=== PATIENT | female | born 1955 | race Caucasian/White ===

== ENCOUNTER → 2018-03-18 14:52 | Outpatient (CLI) | payer OTHER, SELFPAY ==
--- NOTE | 2018-03-18 14:53 | DI.RAD.S_ITS ---
PROCEDURE: XR TOE RT MIN 2V INDICATIONS: Right great toe pain TECHNIQUE: One view of right foot and 2 views of the right great toe toe(s) acquired. COMPARISON: None. FINDINGS: Bones: There is moderate hallux valgus and moderate osteoarthritic changes involving first MTP joint and first interphalangeal joint. Mild osteoarthritic changes are noted throughout the second through fifth PIP and DIP joints. There is vertically oriented linear lucency involving distal shaft of the first proximal phalanx concerning for a subtle nondisplaced fracture in this area with possible fracture line extending into first interphalangeal joint space. No other fracture or dislocation is seen. No suspicious bony lesions. Soft tissues: No suspicious soft tissue densities. Mild soft tissue swelling around first metatarsal head is seen. IMPRESSION: 1. Linear lucency seen in distal shaft of first proximal phalanx is concerning for incomplete intra-articular fracture in this area. Clinical correlation and followup is recommended. 2. No other fracture or dislocation is seen. Right great toe osteoarthritis and mild soft tissue swelling over first MTP joint. Dictated by: Ramon Jordan M.D. on 03/18/2018 at 15:16 Approved by: Ramon Jordan M.D. on 03/18/2018 at 15:24
== END ==
PROVIDERS: PCP Family Medicine; Visit Provider Registered Nurse
DX: M79.674 Pain in right toe(s) (principal); M19.071 Primary osteoarthritis, right ankle and foot; M79.89 Other specified soft tissue disorders
CPT/HCPCS: 73660

== ENCOUNTER → 2018-04-15 09:37 | Outpatient (CLI) | payer OTHER, SELFPAY ==
--- NOTE | 2018-04-15 09:40 | DI.RAD.S_ITS ---
PROCEDURE: XR FOOT RT MIN 3V INDICATIONS: Follow-up from Xray one month ago TECHNIQUE: 3 views of the foot were acquired. COMPARISON: [facility], CR, XR TOE RT MIN 2V, 03/18/2018, 14:32. FINDINGS: Bones: No fractures or dislocations. No suspicious bony lesions. Moderate hallux valgus deformity is present. Osteoarthritic changes are noted at the first MTP and IP joints. Scattered second through fifth PIP and DIP joint space degenerative narrowing is noted. The previously identified vertical lucency within the first proximal phalanx is not well-visualized. Soft tissues: No tibiotalar joint effusion. Achilles tendon appears normal. IMPRESSION: Nonvisualization of previous first phalanx lucency. Dictated by: Dorothy Khan M.D. on 04/15/2018 at 11:21 Approved by: Dorothy Khan M.D. on 04/15/2018 at 11:24
== END ==
PROVIDERS: PCP Family Medicine; Visit Provider Registered Nurse
DX: S92.401A Displaced unspecified fracture of right great toe, initial encounter for closed fracture (principal)
CPT/HCPCS: 73630

== ENCOUNTER → 2018-09-24 08:55 | Outpatient (CLI) | payer OTHER, SELFPAY ==
--- NOTE | 2018-09-24 08:56 | DI.MG.S_ITS ---
BILATERAL DIGITAL SCREENING MAMMOGRAM 3D/2D WITH CAD: 09/24/2018 CLINICAL: Routine screening. Family history of breast cancer. Comparison is made to exams dated: 04/02/2016 mammogram and 10/16/2013 mammogram - [facility]. The tissue of both breasts is heterogeneously dense. This may lower the sensitivity of mammography. Current study was also evaluated with a Computer Aided Detection (CAD) system. No significant masses, calcifications, or other findings are seen in either breast. There has been no significant interval change. IMPRESSION: NEGATIVE There is no mammographic evidence of malignancy. A 1 year screening mammogram is recommended. This exam was interpreted at Station ID: [id number]. NOTE: For mammograms, a report in lay terms will be sent to the patient. Approximately 15% of breast malignancies will not be visualized mammographically. In the management of a palpable breast mass, a negative mammogram must not discourage biopsy of a clinically suspicious lesion. Electronically Signed By: Lila walters/theresa:09/24/2018 18:45:55 letter sent: Normal Exam ACR BI-RADS Category 1: Negative 3341F
== END ==
PROVIDERS: PCP Family Medicine; Visit Provider Family Medicine
DX: Z12.31 Encounter for screening mammogram for malignant neoplasm of breast (principal); Z80.3 Family history of malignant neoplasm of breast
CPT/HCPCS: 77063; 77067

== ENCOUNTER → 2018-10-03 09:11 | Outpatient (CLI) | payer OTHER, SELFPAY ==
--- NOTE | 2018-10-03 09:12 | DI.US.S_ITS ---
PROCEDURE: US RENAL COMPLETE INDICATIONS: complex renal cyst TECHNIQUE: Real-time scanning was performed of the kidneys and bladder, with image documentation. COMPARISON: [facility], CT, CT ANGIO CHEST PE, 03/07/2016, 14:54. [facility], CT, CT ABD PELVIS W CON, 03/07/2016, 14:54. Outside Facility, RG, US RENAL, 02/01/2016, 9:20. FINDINGS: Kidneys: Kidneys are normal in size. Right kidney measures 10.4 cm long; left kidney measures 10.7 cm long. Right renal cortical thickness is 0.9 cm; left renal cortical thickness is 1.4 cm. Renal cortical echotexture is normal. No hydronephrosis or nephrolithiasis. No suspicious solid mass lesions. Mildly complex right renal cyst no significant change measuring 1.8 x 2.0 x 2.3 cm compared to 1.7 x 2.0 x 2.2 cm and are renal ultrasound. Mildly complex left renal cyst slightly increased in size now measuring 2.5 x 2.1 x 2.1 cm compared to 1.9 x 1.8 x 1.9 cm on prior renal ultrasound. Bladder: Pre-void bladder volume is 40 mL. Post-void residual is 0 mL. Pre-void images demonstrate no intraluminal masses or stones. On pre-void images, bilateral ureteral jets are noted with color Doppler interrogation. (Of note, ureteral jets may not be detectable in up to 25% of cases due to insufficient differences in specific gravity between ureteral and bladder urine). Miscellaneous: No free pelvic fluid. Hepatic cyst measuring 23 mm. IMPRESSION: 1. Mildly complex (Bosniak 2F) bilateral renal cysts, with the left slightly increased in size from prior renal ultrasound performed in 2015. Recommend continued sonographic surveillance and if indicated, renal protocol CT could be performed for further characterization. Dictated by: Lenny BACON Interpreted: Eric Andujar MD on 10/03/2018 at 12:16 Approved by: Eric Andujar M.D. on 10/03/2018 at 16:07
== END ==
PROVIDERS: PCP Family Medicine; Visit Provider Family Medicine
DX: N28.1 Cyst of kidney, acquired (principal)
CPT/HCPCS: 76770

== ENCOUNTER → 2021-05-08 09:41 | Outpatient (CLI) | payer OTHER, SELFPAY ==
[2021-05-08 13:32] LABS: Add Manual Diff / Slide Review NO; Basophils Absolute Auto 0 /uL (0-100); Basophils Percent Auto 0.8 % (0-2); Eosinophils Absolute Auto 400 /uL (0-450); Eosinophils Percent Auto 7.6 % (2-4); Hematocrit 40.8 % (36-46); Hemoglobin 13.4 g/dL (12.0-16.0); Lymphocytes Absolute Auto 1700 /uL (1100-4500); Lymphocytes Percent Auto 34.3 % (25-40); Mean Corpuscular HGB Conc 32.8 % (30-36); Mean Corpuscular Hemoglobin 30.2 PG (26-34); Mean Corpuscular Volume 92.1 fL (80-100); Monocytes Absolute Auto 500 /uL (0-900); Monocytes Percent Auto 9.4 % (3-14); Neutrophils Absolute Auto 2300 /uL (1500-7000); Neutrophils Percent Auto 47.9 % (50-75); Platelet Count 168 X10^3/uL (150-400); Red Blood Cell Count 4.43 X10^6/uL (4.0-5.2); Red Cell Distribution Width 13.4 % (11.6-14.8); White Blood Cell Count 4.9 X10^3/uL (4.5-11.0)
[2021-05-08 14:47] LABS: Alanine Aminotransferase 15 IU/L (<35); Albumin 3.9 g/dL (3.5-5.0); Albumin Globulin Ratio 1.4 (1.0-2.8); Alkaline Phosphatase 62 U/L (38-126); Aspartate Aminotransferase 23 IU/L (14-36); BUN Creatinine Ratio 18.4 (6-22); Bilirubin Total 0.5 mg/dL (0.2-1.3); Blood Urea Nitrogen 14 mg/dL (7-17); Calcium 9.3 mg/dL (8.4-10.2); Carbon Dioxide 33 mmol/L (22-32); Chloride 104 mmol/L (98-107); Cholesterol 222 mg/dL (140-199); Estimated Glomerular Filt Rate > 60.0 mL/min (>60); Globulin 2.7 g/dL (1.7-4.1); Glucose 82 mg/dL (80-110); HDL Cholesterol 83 mg/dL (40-60); HEMOLYSIS < 15 (0-50); LDL Cholesterol Calculated 127 mg/dL (<100); Potassium 4.4 mmol/L (3.4-5.1); Sodium 140 mmol/L (137-145); Total Protein 6.6 g/dL (6.3-8.2); Triglycerides 58 mg/dL (35-150)
[2021-05-08 15:08] LABS: TSH w/ Reflex to FT4 1.14 uIU/mL (0.47-4.68)
[2021-05-08 17:05] LABS: Vitamin D 25 Hydroxy (D3) 63.5 ng/mL (30.0-100.0)
== END ==
PROVIDERS: PCP Family Medicine; Referring Provider Family Medicine; Visit Provider Family Medicine
DX: E78.5 Hyperlipidemia, unspecified (principal); Z00.00 Encounter for general adult medical examination without abnormal findings
CPT/HCPCS: 36415; 80053; 80061; 82306; 84443; 85025

== ENCOUNTER → 2023-04-04 09:08 | Outpatient (CLI) | payer MEDICARE, OTHER, SELFPAY ==
[2023-04-04 11:09] LABS: Add Manual Diff / Slide Review NO; Basophils Absolute Auto 0 /uL (0-100); Basophils Percent Auto 0.7 % (0-2); Eosinophils Absolute Auto 200 /uL (0-450); Eosinophils Percent Auto 5.1 % (2-4); Hematocrit 39.2 % (36-46); Lymphocytes Absolute Auto 1600 /uL (1100-4500); Lymphocytes Percent Auto 34.2 % (25-40); Mean Corpuscular HGB Conc 33.2 % (30-36); Mean Corpuscular Hemoglobin 30.3 PG (26-34); Mean Corpuscular Volume 91.2 fL (80-100); Monocytes Absolute Auto 400 /uL (0-900); Monocytes Percent Auto 9.5 % (3-14); Neutrophils Absolute Auto 2400 /uL (1500-7000); Neutrophils Percent Auto 50.5 % (50-75); Platelet Count 166 X10^3/uL (150-400); Red Blood Cell Count 4.29 X10^6/uL (4.0-5.2); White Blood Cell Count 4.7 X10^3/uL (4.5-11.0)
[2023-04-04 11:32] LABS: Alanine Aminotransferase 20 IU/L (<35); Albumin Globulin Ratio 1.3 (1.0-2.8); Alkaline Phosphatase 51 U/L (38-126); Aspartate Aminotransferase 25 IU/L (14-36); BUN Creatinine Ratio 25.7 (6-22); Bilirubin Total 0.6 mg/dL (0.2-1.3); Blood Urea Nitrogen 19 mg/dL (7-17); Calcium 9.2 mg/dL (8.4-10.2); Carbon Dioxide 28 mmol/L (22-32); Chloride 104 mmol/L (98-107); Cholesterol 256 mg/dL (140-199); Estimated Glomerular Filt Rate > 60 mL/min (>60); Glucose 90 mg/dL (80-110); HDL Cholesterol 81 mg/dL (40-60); HEMOLYSIS < 15 (0-50); LDL Cholesterol Calculated 159 mg/dL (<100); Potassium 4.1 mmol/L (3.4-5.1); Sodium 137 mmol/L (137-145); Triglycerides 82 mg/dL (35-150)
[2023-04-04 11:50] LABS: Vitamin D 25 Hydroxy (D3) 44.7 ng/mL (30.0-100.0)
[2023-04-04 12:13] LABS: TSH w/ Reflex to FT4 0.74 uIU/mL (0.47-4.68)
[2023-04-06 00:04] LABS: Cancer (Carbohydrate) Ag 19-9 8 U/mL (0-35)
== END ==
PROVIDERS: PCP Family Medicine; Referring Provider Family Medicine; Visit Provider Family Medicine
DX: Z13.220 Encounter for screening for lipoid disorders (principal)
CPT/HCPCS: 80053; 80061; 82306; 84443; 85025; 86301

== ENCOUNTER → 2023-05-28 09:17 | Outpatient (CLI) | payer MEDICARE, OTHER, SELFPAY ==
--- NOTE | 2023-05-28 09:19 | DI.MG.S_ITS ---
BILATERAL DIGITAL SCREENING MAMMOGRAM 3D/2D WITH CAD: 05/28/2023 CLINICAL: Routine screening. Family history of breast cancer. Comparison is made to exams dated: 09/24/2018 mammogram - [facility], 04/02/2016 mammogram, and 10/16/2013 mammogram - [facility]. Both breasts are heterogeneously dense, which may obscure small masses (category c / 51-75% glandular tissue). Current study was also evaluated with a Computer Aided Detection (CAD) system. No significant masses, calcifications, or other findings are seen in either breast. There has been no significant interval change. IMPRESSION: NEGATIVE There is no mammographic evidence of malignancy. A 1 year screening mammogram is recommended. Based on the Tyrer Cuzick model (a risk assessment model) the patient's lifetime risk is 16.8% and her 10 year risk is 8.3%. According to the ACR, ACS, and NCCN guidelines, an annual breast MRI exam along with mammogram is recommended if the patient's lifetime risk is 20% or greater. This exam was interpreted at Station ID: [id number]. NOTE: For mammograms, a report in lay terms will be sent to the patient. Approximately 15% of breast malignancies will not be visualized mammographically. In the management of a palpable breast mass, a negative mammogram must not discourage biopsy of a clinically suspicious lesion. Electronically Signed By: Dorian john/theresa:05/28/2023 12:47:48 letter sent: Normal Exam ACR BI-RADS Category 1: Negative 3341F
--- NOTE | 2023-05-28 09:19 | DI.RAD.S_ITS ---
Bone Density Report Name: CASH ROLDAN Age: 67 Sex: Female Ethnicity: White Date of : 1955 Indication: postmenopausal; screening for osteoporosis; Referring Provider: ARPITA RENAE Study: Bone densitometry was performed. Exam Date: May 28, 2023 Accession number: [id number] Bone Density: Region BMD T-score Z-score Classification AP Spine(L1-L4) 0.713 -3.0 -1.2 Osteoporosis Femoral Neck (Left) 0.642 -1.9 -0.3 Osteopenia Total Hip (Left) 0.775 -1.4 -0.1 Osteopenia Femoral Neck (Right) 0.642 -1.9 -0.3 Osteopenia Total Hip (Right) 0.751 -1.6 -0.3 Osteopenia Total Hip Mean 0.763 -1.5 -0.2 Osteopenia World Health Organization criteria for BMD impression classify patients as: Normal (T-score at or above -1.0), Osteopenia (T-score between -1.0 and -2.5), or Osteoporosis (T-score at or below -2.5). 10-year Fracture Risk: FRAX not reported because: Some T-score for Spine Total or Hip Total or Femoral Neck at or below -2.5 Impression: The patient has osteoporosis, based on the Total Spine T-score. Discussion: INCREASED RISK OF FRACTURE. BONE DENSITY IS UNDESIRABLY LOW AT ONE OR MORE SKELETAL SITES, CONSISTENT WITH POSTMENOPAUSAL OSTEOPOROSIS. This patient's lowest T-score meets the World Health Organization's (WHO) criteria for osteoporosis at one or more sites (T-score -2.5 or below). In untreated patients, the risk of osteoporotic fracture increases approximately two-fold for each 1.0 SD decrease in T-score. Low bone density is not the only risk factor for fracture; also consider factors such as patient's age, frailty or poor health, risk of falling, risk of injury, previous osteoporotic fracture, family history of osteoporosis, cigarette smoking, low body weight, etc. Not everyone with low bone mineral density has osteoporosis; osteomalacia and other metabolic bone disorders should also be considered. Patients who have osteoporosis should be evaluated for specific diseases and conditions (secondary causes) that may cause or contribute to bone loss. The [place] [employer]ocr[employer] (AACE) and National Osteoporosis Foundation (NOF) recommend pharmacologic intervention for all postmenopausal women whose T-score is in this range. The patient should follow a healthful lifestyle (good nutrition with adequate calcium and vitamin D, and appropriate weight-bearing exercise). Follow-Up: Consider a repeat BMD and Vertebral Fracture Assessment (VFA) exam in 2 years or sooner if medically necessary, to reassess this patient's status. Reported by: HERMILO AVINA M.D. on 05/28/2023 10:02:00 AM.
== END ==
PROVIDERS: PCP Family Medicine; Referring Provider Family Medicine; Visit Provider Family Medicine
DX: Z12.31 Encounter for screening mammogram for malignant neoplasm of breast (principal); Z80.3 Family history of malignant neoplasm of breast; Z13.220 Encounter for screening for lipoid disorders; M81.0 Age-related osteoporosis without current pathological fracture
CPT/HCPCS: 77063; 77067; 77080

== ENCOUNTER → 2025-04-08 07:02 | Outpatient (CLI) | payer MEDICARE, OTHER, SELFPAY ==
[2025-04-08 08:02] LABS: Add Manual Diff / Slide Review NO; Hematocrit 38.1 % (36-46); Hemoglobin 12.7 g/dL (12.0-16.0); Lymphocytes Absolute Auto 1700 /uL (1100-4500); Mean Corpuscular HGB Conc 33.4 % (30-36); Mean Corpuscular Hemoglobin 30.0 PG (26-34); Mean Corpuscular Volume 89.9 fL (80-100); Platelet Count 159 X10^3/uL (150-400)
[2025-04-08 08:46] LABS: Alanine Aminotransferase 20 IU/L (<35); Albumin 3.8 g/dL (3.5-5.0); Albumin Globulin Ratio 1.4 (1.0-2.8); Alkaline Phosphatase 61 U/L (38-126); Blood Urea Nitrogen 20 mg/dL (7-17); Calcium 8.8 mg/dL (8.4-10.2); Carbon Dioxide 25 mmol/L (22-32); Chloride 107 mmol/L (98-107); Cholesterol 205 mg/dL (140-199); Estimated Glomerular Filt Rate > 60 mL/min (>60); Globulin 2.8 g/dL (1.7-4.1); Glucose 84 mg/dL (70-99); HDL Cholesterol 87 mg/dL (40-60); HEMOLYSIS < 15 (0-50); Lipase 117 U/L (23-300); Potassium 4.3 mmol/L (3.4-5.1); Sodium 140 mmol/L (137-145); Total Protein 6.6 g/dL (6.3-8.2); Triglycerides 55 mg/dL (35-150)
[2025-04-08 09:03] LABS: TSH w/ Reflex to FT4 1.52 uIU/mL (0.47-4.68)
== END ==
PROVIDERS: PCP Family Medicine; Referring Provider Family Medicine; Visit Provider Family Medicine
DX: Z13.220 Encounter for screening for lipoid disorders (principal); K21.9 Gastro-esophageal reflux disease without esophagitis
CPT/HCPCS: 36415; 80053; 80061; 83690; 84443; 85025